=== PATIENT | female | born 1945 | race Caucasian/White ===

== ENCOUNTER 2018-02-07 10:26 | Inpatient (IN) | payer OTHER ==
[~2018-02-07] VITALS: Ht 160 cm; Wt 111.0 kg
[~2018-02-07 10:26] MED LIST: ALLOPURINOL100 MG PO; CARCD240 PO; CARTIA XT240 MG PO; COMINH INH; DICLOFENAC SOD75 M1 PO; FUROSEMIDE20 MG PO; HYD25 PO; LAC PO; LEVAQUIN750 MG PO; LOP50 PO; POTASSIUM99 MG PO; PRA20 PO
[2018-02-07 11:35] LABS: BASOPHIL % 0.3 % (0-2); PLATELET COUNT 231 x10^3mcL (130-400)
[2018-02-07 11:36] LABS: RED CELL DISTRIBUTION WIDTH 15.4 % (11.5-14.5)
[2018-02-07 11:37] LABS: CALCIUM 8.5 mg/dL (8.5-10.1); CARBON DIOXIDE 35.4 mmol/L (21-32); CHLORIDE SERUM 103 mmol/L (98-107); CREATININE SERUM 1.6 mg/dL (0.6-1.0); GLUCOSE SERUM 154 mg/dL (74-106); SODIUM SERUM 143 mmol/L (136-145)
[2018-02-07 11:42] LABS: ALBUMIN 3.1 g/dL (3.4-5.0); ALKALINE PHOSPHATASE 134 U/L (46-116); ALT/SGPT 15 U/L (14-59); AST/SGOT 13 U/L (15-37); BILIRUBIN TOTAL 0.3 mg/dL (0.20-1.00); TOTAL PROTEIN, SERUM 7.2 g/dL (6.4-8.2)
[2018-02-07 13:26] LABS: UA SPECIFIC GRAVITY <=1.005 (1.005-1.035); microscopic required? YES; urine erythrocyte NEGATIVE (NEGATIVE)
[2018-02-07 15:13] LABS: MAGNESIUM 2.5 mg/dL (1.8-2.4); PHOSPHOROUS 3.3 mg/dL (2.5-4.9)
[2018-02-07 15:14] LABS: FREE T4 0.97 ng/dL (0.76-1.46); FREE THYROXINE INDEX 2.7 ug/dL (1.4-4.5); T4(THYROXINE) 8.3 ug/dL (4.7-13.3)
[2018-02-07 15:16] LABS: T3 TOTAL 1.21 ng/mL
[2018-02-07 15:18] LABS: CHOLESTEROL/HDL RATIO 3.6
[2018-02-07 16:01] VITALS: BP 133/46
[2018-02-07 16:15] VITALS: Ht 160 cm; Wt 111.0 kg
[2018-02-07 17:45] VITALS: BP 133/46
[2018-02-07 20:59] VITALS: BP 146/51
[2018-02-07 21:01] VITALS: BP 133/71
[2018-02-08 05:35] VITALS: BP 118/75
[2018-02-08 06:06] LABS: PLATELET COUNT 238 x10^3mcL (130-400)
[2018-02-08 06:23] LABS: CALCIUM 8.8 mg/dL (8.5-10.1); CARBON DIOXIDE 32.4 mmol/L (21-32); CHLORIDE SERUM 101 mmol/L (98-107); CREATININE SERUM 1.4 mg/dL (0.6-1.0); GLUCOSE SERUM 170 mg/dL (74-106); MAGNESIUM 2.2 mg/dL (1.8-2.4); PHOSPHOROUS 3.1 mg/dL (2.5-4.9); POTASSIUM SERUM 4.2 mmol/L (3.5-5.1); SODIUM SERUM 139 mmol/L (136-145)
[2018-02-08 06:36] LABS: BASOPHIL % 0 % (0-2); RED CELL DISTRIBUTION WIDTH 15.1 % (11.5-14.5)
[2018-02-08 08:19] VITALS: BP 130/61
[2018-02-08 13:04] VITALS: BP 120/67
[2018-02-08 16:28] VITALS: BP 141/68
[2018-02-08 21:40] VITALS: BP 131/69
[2018-02-09 05:49] VITALS: BP 129/63
[2018-02-09 10:09] VITALS: BP 107/47
[2018-02-09 18:28] VITALS: BP 143/43
[2018-02-09 21:37] VITALS: BP 133/55
[2018-02-10 05:52] VITALS: BP 141/64
[2018-02-10 08:34] VITALS: BP 144/62
[2018-02-10 12:36] VITALS: BP 154/73
[2018-02-10 14:55] VITALS: BP 154/73
[2018-02-10 20:49] VITALS: BP 129/56
[2018-02-11 05:35] VITALS: BP 122/56
[2018-02-11 09:49] VITALS: BP 134/51
[2018-02-11 14:10] VITALS: BP 154/55
[2018-02-11] MEDS ORDERED: NIC14 TD (14:30)
[2018-02-11] MEDS ORDERED: LAC PO (14:32)
[2018-02-11] MEDS ORDERED: LEVAQUIN750 MG PO (14:36)
[2018-02-11] MEDS ORDERED: MEDDP PO (14:38)
[2018-02-11] MEDS ORDERED: COL100 PO (14:41)
== END 2018-02-11 15:40 | DRG 177 ==
LOC: ED 10:26 → DU 13:46
PROVIDERS: Emergency Medicine; Internal Medicine
DX: J69.0 Pneumonitis due to inhalation of food and vomit (principal); N17.0 Acute kidney failure with tubular necrosis; J44.1 Chronic obstructive pulmonary disease with (acute) exacerbation; J96.12 Chronic respiratory failure with hypercapnia; J96.11 Chronic respiratory failure with hypoxia; N39.0 Urinary tract infection, site not specified; Z68.41 Body mass index [BMI] 40.0-44.9, adult; K57.90 Diverticulosis of intestine, part unspecified, without perforation or abscess without bleeding; I10 Essential (primary) hypertension; E83.41 Hypermagnesemia; R73.03 Prediabetes; E78.5 Hyperlipidemia, unspecified; M19.90 Unspecified osteoarthritis, unspecified site; F17.210 Nicotine dependence, cigarettes, uncomplicated; E66.9 Obesity, unspecified; Z90.49 Acquired absence of other specified parts of digestive tract; Z99.81 Dependence on supplemental oxygen; Z91.81 History of falling
CPT/HCPCS: 83880; 84439; 94150; 97110-GP; 97116-GP; 97530-GP; 97535-GP; J0456; J0696; J1940; J1956; J2060; J2920; J2930; J7030; J7050; J7613; J7620; J7644; Q0092